=== PATIENT | male | born 1975 | race African-American/Black ===

== ENCOUNTER 2018-02-05 17:54 | Emergency (ER) | payer OTHER ==
[~2018-02-05] VITALS: Ht 182.9 cm; Wt 109.0 kg
[2018-02-05 18:45] VITALS: BP 160/98
== END 2018-02-05 18:47 | disposition home or self-care (01) ==
LOC: ER 17:54
DX: Z02.89 Encounter for other administrative examinations (principal); E11.9 Type 2 diabetes mellitus without complications; F31.9 Bipolar disorder, unspecified; R03.0 Elevated blood-pressure reading, without diagnosis of hypertension; Z88.0 Allergy status to penicillin; Z88.6 Allergy status to analgesic agent
CPT/HCPCS: 99283; Z7610